=== PATIENT | female | born 1975 | race American Indian/Alaskan Native ===

== ENCOUNTER 2021-05-20 10:35 | Emergency (ER) | payer SELFPAY ==
[2021-05-20] MEDS ORDERED: KETOROLAC 60 MG/2 ML INJ IM ONE (11:21)
--- NOTE | 2021-05-20 11:35 | Emergency Department Report ---
ED Extremity Problem HPI - General Chief complaint: Extremity Injury, Lower Stated complaint: POSS RHT BROKEN FOOT Time Seen by Provider: 05/20/21 11:07 Source: patient Mode of arrival: Ambulatory Limitations: No Limitations - History of Present Illness Initial comments: 45-year-old female with a past medical history of CHF, hypertension, and pacemaker placement presents to the hospital with complaints of right foot pain since yesterday. Patient is here from [place] for a . Last night she struck her bare right foot on edge of the bed then later on during the struck her foot on a harsha terrain while wearing tight fitting pointy shoes. Patient complains of moderate to severe generalized right foot pain greatest at the area of the great toe. Pain with movement and palpation with difficulty bearing weight denies history of gout or fever. Patient is taken Tylenol 1 g as needed without relief - Related Data Previous Rx's Medication Instructions Recorded Last Taken Type HYDROcodone/APAP 5-325 [[place] 1 each PO Q6HR PRN #14 tablet 05/20/21 Unknown Rx 5/325] Ibuprofen [Motrin] 800 mg PO Q8HR PRN #20 tablet 05/20/21 Unknown Rx Allergies Allergy/AdvReac Type Severity Reaction Status Date / Time No Known Allergies Allergy Unverified 05/20/21 11:00 ED Review of Systems ROS: Stated complaint: POSS RHT BROKEN FOOT Other details as noted in HPI Comment: All other systems reviewed and negative ED Past Medical Hx - Past Medical History Previous Medical History?: Yes Hx Congestive Heart Failure: Yes Additional medical history: Pacemaker - Surgical History Past Surgical History?: Yes Hx Pacemaker: Yes - Medications Home Medications: Home Medications Medication Instructions Recorded Confirmed Last Taken Type HYDROcodone/APAP 5-325 [[place] 1 each PO Q6HR PRN #14 tablet 05/20/21 Unknown Rx 5/325] Ibuprofen [Motrin] 800 mg PO Q8HR PRN #20 tablet 05/20/21 Unknown Rx ED Physical Exam - General Limitations: No Limitations - Other Other exam information: General: No acute distress Head: Atraumatic Eyes: normal appearance ENT: Moist mucous membranes Neck: Normal appearance, no midline tenderness Chest: Clear to auscultation bilaterally CV: Regular rate and rhythm Abdomen: Soft, normal bowel sounds, nontender, nondistended, no rebound or guarding Back: Normal inspection Extremity: 2+ DP pulse of the right foot. Noticeable generalized swelling to the right foot with tenderness at the first metatarsal and phalanges area without warmth or erythema. Tenderness also extends to second and third metatarsal area. No ankle tenderness. Full range of motion of ankle. Minimal movement of toe secondary to pain Neuro: Alert O x 3, no facial asymmetry, speech clear, no gross motor sensory deficit Psych: Appropriate behavior Skin: No rash ED Course Vital Signs 05/20/21 05/20/21 05/20/21 11:02 11:42 11:48 Temperature 99.0 F Pulse Rate 73 72 Respiratory 16 12 12 Rate Blood Pressure 98/68 Blood Pressure 123/75 [Left] O2 Sat by Pulse 100 100 Oximetry 05/20/21 11:50 Temperature Pulse Rate 72 Respiratory 12 Rate Blood Pressure 123/75 Blood Pressure [Left] O2 Sat by Pulse 100 Oximetry ED Medical Decision Making - Radiology Data Radiology results: report reviewed Right foot-3 views INDICATION: diffuse swelling/pain greatest at R great toe. COMPARISON: None. IMPRESSION: No acute osseous abnormality. Mild generalized soft tissue swelling about the forefoot. Normal alignment. No significant DJD. - Medical Decision Making 45-year-old female presents to the hospital with right foot pain and swelling after several episodes of minor traumatic injury. Received Toradol for pain. X-ray does not reveal acute bony injury. Given history of trauma diagnosis of contusion is made. Gout is also a consideration however, given history reported trauma and lack of white erythema to great toe contusion is felt to be more likely. Patient be treated with NSAIDs, narcotics, cast shoe, crutches - Differential Diagnosis Gout, fracture, contusion, sprain Critical Care Time: No Critical care attestation.: If time is entered above; I have spent that time in minutes in the direct care of this critically ill patient, excluding procedure time. ED Disposition Clinical Impression: Contusion of right foot Disposition: HOME / SELF CARE / HOMELESS Is pt being admited?: No Does the pt Need Aspirin: No Condition: Stable Instructions: Foot Contusion Additional Instructions: Take the medication as prescribed. Follow-up with your doctor or doctor/clinic provided. You may follow-up with the orthopedic doctor provided with orthopedic doctor of your choice. Return if symptoms worsen as indicated by your discharge instructions. Prescriptions: Ibuprofen [Motrin] 800 mg PO Q8HR PRN #20 tablet PRN Reason: Pain , Severe (7-10) HYDROcodone/APAP 5-325 [[place] 5/325] 1 each PO Q6HR PRN #14 tablet PRN Reason: Pain Referrals: PRIMARY CARE, [Primary Care Provider] - 3-5 Days ABEBA LEONG MD [Staff Physician] - 3-5 Days (Orthopedic surgeon) Time of Disposition: 12:31
[2021-05-20 11:49] VITALS: BP 123/75
--- NOTE | 2021-05-20 11:52 | XRay Report ---
Right foot-3 views INDICATION: diffuse swelling/pain greatest at R great toe. COMPARISON: None. IMPRESSION: No acute osseous abnormality. Mild generalized soft tissue swelling about the forefoot. Normal alignment. No significant DJD. Signer Name: Mustapha Felix MD Signed: 05/20/2021 11:48 AM Workstation Name: [id number]
[2021-05-20] MEDS ORDERED: HYDROcodone/ACETAMINOPHEN 5-325 MG TAB PO ONE (11:56)
== END 2021-05-20 12:41 | disposition home or self-care (01) ==
LOC: ED 10:35
DX: S90.31XA Contusion of right foot, initial encounter (principal); I11.0 Hypertensive heart disease with heart failure; I50.9 Heart failure, unspecified; Z95.0 Presence of cardiac pacemaker; W22.8XXA Striking against or struck by other objects, initial encounter; Y93.89 Activity, other specified; Y92.89 Other specified places as the place of occurrence of the external cause; Y99.8 Other external cause status
CPT/HCPCS: 73630; 96372; 99283; J1885